=== PATIENT | female | born 1955 | race Caucasian/White ===

== ENCOUNTER → 2017-09-08 | Outpatient (CLI) | payer OTHER ==
--- NOTE | 2017-09-08 15:15 | PCVCIMAG ---
EXAM: BILATERAL CAROTID DUPLEX INDICATION: Carotid Occlusive Disease. FINDINGS: Doppler Measurements (centimeters per second): RIGHT: Peak CCA-90, Peak ECA-77, Diastolic ICA-28, Peak ICA-92, ICA/CCA Ratio-1.0. LEFT: Peak CCA-104, Peak ECA-42, Diastolic ICA-32, Peak ICA-90, ICA/CCA Ratio-0.9. RIGHT CAROTID: The carotid bulb has mild plaque. The proximal internal carotid artery shows <40% stenosis. The common carotid artery shows no significant stenosis. The external carotid artery shows no significant stenosis. LEFT CAROTID: The carotid bulb has mild plaque. The proximal internal carotid artery shows <40% stenosis. The common carotid artery shows no significant stenosis. The external carotid artery shows no significant stenosis. Antegrade flow in both vertebral arteries. IMPRESSION: <40% stenosis of the right internal carotid artery with mild plaque. <40% stenosis of the left internal carotid artery with mild plaque. LOC:[place] [id number]
--- NOTE | 2017-09-08 16:15 | PCVCIMAG ---
APPROVED REPORT Exam: Stress Echocardiogram Indication: CAD , Dyspnea , Chest pain,Pre-syncope Patient Location: Echo lab Stress Nurse: Mary Saldana RN Status: routine Ht: 5 ft 3 in HR: 82 bpm BP: 146/80 mmHg Rhythm: NSR Procedure The patient underwent an Exercise Stress Test using the Arcadio Protocol. Blood pressure, heart rate, and EKG were monitored. An Echocardiogram was performed by research and development technician in four stages in quad fashion. At peak stress, four selected images were obtained and placed side by side with resting images for comparison. Stress Test Details Stress Test: Exercise stress testing was performed using a Arcadio protocol. HR Resting HR: 82 bpmMax Heart Rate (APMHR): 156 bpm Max HR Achieved: 121 bpmTarget HR (85% APMHR): 132 bpm % of APMHR: 77 Recovery HR: 90 bpm HR response to stress: Normal HR response to stress BP Resting BP: 146/80 mmHg Max BP: 152/70 mmHg Recovery BP: 146/70 mmHg ECG Resting ECG: Sinus Rhythm Stress ECG: Sinus Rhythm Recovery ECG: Sinus Rhythm Recovery Arrhythmia: short run of SVT that resolved Clinical Reason for Termination: Chest pain/Anginal equivalent, Dyspnea Stress Symptoms: Dyspnea, Chest pain Exercise duration: 6 min 59 sec Highest Stage Achieved: Stage 3: 3.4 mph at 14% grade. Exercise capacity: 8.60 METs Stress ECG Conclusion The patient exercised according to the ARCADIO protocol for 6:59 min;s, achieving a work level of MAx METS 8.60. The resting heart rate of 82 bpm david to a maximal heart rate of 134 bpm. This value represents 77% of the maximal, age-predicted heart rate. The resting blood pressure of 146/80 mmHg david to a maximum blood pressure of 180/80 mmHg. The exercise test was stopped due to chest discomfort, dyspnea, fatigue. Pre-Stress Echo The resting Echocardiogram showed normal left ventricular contractility with an estimated Ejection Fraction of about 50-55%. Normal wall motion in all segments on baseline images. Post-Stress Echo The stress Echocardiogram showed normal left ventricular contractility with an estimated Ejection Fraction of about 55-60%. The stress Echocardiogram demonstrated wall motion abnormality in the distal septal wall . Clinical Chest pain with exertion that relieved at rest. Conclusion Clinical Response: Ischemic Exercise Capacity: Average Stress ECG Response: Non-ischemic Stress Echo Images: Ischemic Distal Septal hypokinesis post exercise. Resting pulmonary artery pressure 27 mmHg. Other Information Study Quality: Adequate <Conclusion> Distal Septal hypokinesis post exercise. Resting pulmonary artery pressure 27 mmHg.
== END | disposition home or self-care (01) ==
LOC: PCVCIMAG 13:33
PROVIDERS: ATTEND Internal Medicine Cardiovascular Disease
DX: I25.10 Atherosclerotic heart disease of native coronary artery without angina pectoris (principal); I65.23 Occlusion and stenosis of bilateral carotid arteries; R07.9 Chest pain, unspecified; R06.00 Dyspnea, unspecified; E78.5 Hyperlipidemia, unspecified; R55 Syncope and collapse
CPT/HCPCS: 36415; 93325; 93351; 93880

== ENCOUNTER → 2017-09-18 | Outpatient (CLI) | payer OTHER ==
--- NOTE | 2017-09-18 16:19 | PCVCIMAG ---
EXAM: DUPLEX ULTRASOUND OF THE RIGHT GROIN INDICATION: Groin swelling and pain. FINDINGS: No pseudoaneurysm is present. The common femoral artery and vein are patent. No arteriovenous fistula is seen. IMPRESSION: Study is negative for pseudoaneurysm. Incidental note is made of a 2.7 x 2.6 x 4.9 cm subcutaneous hematoma and a 2.0 x 3.1 x 3.7 cm subcutaneous hematoma. LOC:[place] [id number]
== END | disposition home or self-care (01) ==
LOC: PCVCIMAG 11:37
PROVIDERS: ATTEND Internal Medicine Cardiovascular Disease
DX: M79.81 Nontraumatic hematoma of soft tissue (principal); R10.30 Lower abdominal pain, unspecified; R19.09 Other intra-abdominal and pelvic swelling, mass and lump; M79.604 Pain in right leg
CPT/HCPCS: 93926

== ENCOUNTER 2018-07-10 11:05 | Emergency (ER) | payer SELFPAY ==
[~2018-07-10] VITALS: Ht 157.5 cm; Wt 79.8 kg
[2018-07-10] MEDS ORDERED: IV NORMAL SALINE 1000ML BAG 1,000 ML IV SCH (11:26)
[2018-07-10] MEDS ORDERED: NITROGLYCERIN SUBLINGUAL 0.4 MG BOTTLE OF 25. SL PRN (11:30)
[2018-07-10 11:36] LABS: BASO # 0.1 x10^3/uL (0.0-0.2); BASO % 1 % (0-3); EOS # 0.2 x10^3/uL (0.0-0.7); EOS % 3 % (0-3); HEMOGLOBIN 12.7 g/dL (12.0-15.5); LYMPH # 1.5 x10^3/uL (1.0-4.8); LYMPH % 25 % (24-48); MEAN CORPUSCULAR HEMOGLOBIN 32 pg (25-35); MEAN CORPUSCULAR HGB CONC 34 g/dL (31-37); MEAN CORPUSCULAR VOLUME 94 fL (79-100); MONO # 0.5 x10^3/uL (0.0-1.1); MONO % 8 % (0-9); NEUT # 3.8 x10^3uL (1.8-7.7); NEUT % 63 % (31-73); PLATELET COUNT 220 x10^3/uL (140-400); RED BLOOD COUNT 3.96 x10^6/uL (3.50-5.40); RED CELL DISTRIBUTION WIDTH 14.1 % (11.5-14.5)
--- NOTE | 2018-07-10 11:37 | PHYS DOC ---
Past Medical History Past Medical History: Asthma, Depression, GERD Past Surgical History: Angioplasty Additional Past Surgical Histo: CARDIAC STENTS,KNEE,CARPAL TUNNEL Alcohol Use: Occasionally Drug Use: None Adult General Chief Complaint Chief Complaint: CHEST PAIN HPI HPI patient is a 62-year-old female who presents with complaint of palpitations and chest pressure that started this morning. Patient states that she would rate the pain in her chest and a 5 out of 10. She does indicate that she has had some nausea but no diaphoresis.she states that she had a similar episode approximately 20 years ago when she had 2 stents placed. She does indicate that she has some mild dyspnea on exertion and states that she just feels like she has pounding in her chest. Review of Systems Review of Systems Constitutional: Denies fever or chills [] Respiratory: Denies cough or shortness of breath [] Cardiovascular: c/o chest pain and palpitations [] GI: Denies abdominal pain. c/o nausea w/o vomiting [] Musculoskeletal: Denies back pain or joint pain [] Integument: Denies rash or skin lesions [] All other systems were reviewed and found to be within normal limits, except as documented in this note. Current Medications Current Medications Current Medications Medications (Trade) Dose Ordered Sig/Ricarda Start Time Stop Time Status Last Admin Dose Admin Nitroglycerin (Nitrostat) 0.4 mg PRN Q5MIN PRN 07/10/18 11:30 07/11/18 11:29 Sodium Chloride 1,000 ml @ 1,000 mls/hr Q1H 07/10/18 11:26 07/10/18 12:25 DC 07/10/18 12:14 1,000 MLS/HR Allergies Allergies Allergies Coded Allergies Type Severity Reaction Last Updated Verified Penicillins Allergy Unknown 07/10/18 Yes Sulfa (Sulfonamide Antibiotics) Allergy Unknown 07/10/18 Yes Uncoded Allergies Type Severity Reaction Last Updated Verified EGGS,MILK,FISH Allergy Unknown 07/10/18 Physical Exam Physical Exam Constitutional: Well developed, well nourished, no acute distress, non-toxic appearance. [] HENT: Normocephalic, atraumatic, bilateral external ears normal, oropharynx moist, no oral exudates, nose normal. [] Eyes: PERRLA, EOMI, conjunctiva normal, no discharge. [] Neck: Normal range of motion, no tenderness, supple, no stridor. [] Cardiovascular:Heart rate regular rhythm [] Lungs & Thorax: Bilateral breath sounds clear to auscultation [] Abdomen: Bowel sounds normal, soft, no tenderness. [] Skin: Warm, dry, no erythema, no rash. [] Extremities: No tenderness, no cyanosis, no clubbing, ROM intact, no edema. [] Neurologic: Alert and oriented X 3. [] Current Patient Data Vital Signs Vital Signs Date Time Temp Pulse Resp B/P (MAP) Pulse Ox O2 Delivery O2 Flow Rate FiO2 07/10/18 12:13 58 146/71 (96) 98 Room Air 07/10/18 11:43 20 07/10/18 11:14 98.0 98.0 Lab Values Laboratory Tests Test 07/10/18 11:30 07/10/18 13:55 White Blood Count 6.0 x10^3/uL (4.0-11.0) Red Blood Count 3.96 x10^6/uL (3.50-5.40) Hemoglobin 12.7 g/dL (12.0-15.5) Hematocrit 37.0 % (36.0-47.0) Mean Corpuscular Volume 94 fL (79-100) Mean Corpuscular Hemoglobin 32 pg (25-35) Mean Corpuscular Hemoglobin Concent 34 g/dL (31-37) Red Cell Distribution Width 14.1 % (11.5-14.5) Platelet Count 220 x10^3/uL (140-400) Neutrophils (%) (Auto) 63 % (31-73) Lymphocytes (%) (Auto) 25 % (24-48) Monocytes (%) (Auto) 8 % (0-9) Eosinophils (%) (Auto) 3 % (0-3) Basophils (%) (Auto) 1 % (0-3) Neutrophils # (Auto) 3.8 x10^3uL (1.8-7.7) Lymphocytes # (Auto) 1.5 x10^3/uL (1.0-4.8) Monocytes # (Auto) 0.5 x10^3/uL (0.0-1.1) Eosinophils # (Auto) 0.2 x10^3/uL (0.0-0.7) Basophils # (Auto) 0.1 x10^3/uL (0.0-0.2) D-Dimer (Justyna) 0.29 ug/mlFEU (0.00-0.50) Sodium Level 142 mmol/L (136-145) Potassium Level 4.5 mmol/L (3.5-5.1) Chloride Level 106 mmol/L (98-107) Carbon Dioxide Level 27 mmol/L (21-32) Anion Gap 9 (6-14) Blood Urea Nitrogen 13 mg/dL (7-20) Creatinine 0.7 mg/dL (0.6-1.0) Estimated GFR (Cockcroft-Gault) 84.2 BUN/Creatinine Ratio 19 (6-20) Glucose Level 94 mg/dL (70-99) Calcium Level 9.5 mg/dL (8.5-10.1) Magnesium Level 2.1 mg/dL (1.8-2.4) Total Bilirubin 0.6 mg/dL (0.2-1.0) Aspartate Amino Transferase (AST) 17 U/L (15-37) Alanine Aminotransferase (ALT) 23 U/L (14-59) Alkaline Phosphatase 65 U/L (46-116) Troponin I Quantitative < 0.017 ng/mL (0.000-0.055) < 0.017 ng/mL (0.000-0.055) Total Protein 7.0 g/dL (6.4-8.2) Albumin 4.0 g/dL (3.4-5.0) Albumin/Globulin Ratio 1.3 (1.0-1.7) Laboratory Tests 07/10/18 11:30 Laboratory Tests 07/10/18 11:30 EKG EKG [] Interpretation Time: EKG demonstrates a normal sinus rhythm with rate of 64. There are no significant ST segment changes. Radiology/Procedures Radiology/Procedures [] Impressions: Chest x-ray demonstrates no acute process Course & Med Decision Making Course & Med Decision Making Pertinent Labs and Imaging studies reviewed. (See chart for details) [] Dragon Disclaimer Dragon Disclaimer This electronic medical record was generated, in whole or in part, using a voice recognition dictation system. Departure Departure Impression: Primary Impression: Palpitations Disposition: HOME, SELF-CARE Condition: STABLE Referrals: NO PCP (PCP) Patient Instructions: Palpitations Additional Instructions: Follow-up with your primary care provider in the next few days. I would recommend further evaluation with your bioinformaticist in the next 1-2 weeks. Return to the emergency room if you have recurrence of chest pain or onset of other acute symptoms. LENARD CHINCHILLA Jr. DO Jul 10, 2018 11:37
--- NOTE | 2018-07-10 11:49 | RAD ---
EXAM: Chest, single view. HISTORY: Chest pain. COMPARISON: None. FINDINGS: A frontal view of the chest is obtained. There is no infiltrate, pleural effusion or pneumothorax. The heart is normal in size. There are healed left rib fractures. IMPRESSION: No acute pulmonary finding. Electronically signed by: Paris Gandhi MD (07/10/2018 11:46 AM) [facility]
[2018-07-10 11:52] LABS: CALCIUM 9.5 mg/dL (8.5-10.1); CREATININE 0.7 mg/dL (0.6-1.0); GFR 84.2; POTASSIUM 4.5 mmol/L (3.5-5.1)
[2018-07-10 11:57] LABS: ALBUMIN/GLOBULIN RATIO 1.3 (1.0-1.7); MAGNESIUM 2.1 mg/dL (1.8-2.4); TOTAL BILIRUBIN 0.6 mg/dL (0.2-1.0)
--- NOTE | 2018-07-10 12:25 | EKG ---
[facility] [address] [place] [address] Test Date: 2018-07-10 Test Time: 11:13:50 Pat Name: BAO MENG Department: Room: Gender: F [employer]: : [id number] Requested By: LENARD CHINCHILLA Order Number: [id number] Reading MD: Jose C Camarena MD Measurements Intervals [place] Rate: 64 P: 51 MD: 164 QRS: 2 QRSD: 84 T: 38 QT: 406 QTc: 419 Interpretive Statements SINUS RHYTHM Electronically Signed On 07-11-2018 8:20:41 CDT by Jose C Camarena MD
[2018-07-10 15:13] VITALS: BP 167/69
== END 2018-07-10 15:20 | disposition home or self-care (01) ==
LOC: ER 11:05
DX: R00.2 Palpitations (principal); R07.89 Other chest pain; R11.0 Nausea; R06.00 Dyspnea, unspecified; J45.909 Unspecified asthma, uncomplicated; K21.9 Gastro-esophageal reflux disease without esophagitis; Z95.5 Presence of coronary angioplasty implant and graft; Z88.0 Allergy status to penicillin; Z88.2 Allergy status to sulfonamides; Z91.012 Allergy to eggs; Z91.011 Allergy to milk products; Z91.013 Allergy to seafood
CPT/HCPCS: 36415; 71045; 80053; 83735; 84484; 85025; 85379; 93005; 99285; J7030

== ENCOUNTER → 2018-11-28 | Outpatient (CLI) | payer MEDICARE | END | disposition home or self-care (01) | LOC: PCVCCLINIC 16:00 | PROVIDERS: ATTEND Internal Medicine Cardiovascular Disease | DX: I25.10 Atherosclerotic heart disease of native coronary artery without angina pectoris (principal); I10 Essential (primary) hypertension; E78.00 Pure hypercholesterolemia, unspecified; R06.02 Shortness of breath; K21.9 Gastro-esophageal reflux disease without esophagitis; Z87.891 Personal history of nicotine dependence; Z79.82 Long term (current) use of aspirin | CPT/HCPCS: 36415; 80061; 93005; G0463 ==